=== PATIENT | male | born 1995 | race Caucasian/White ===

== ENCOUNTER 2024-05-13 13:36 | Emergency (ER) | payer MEDICAID ==
[~2024-05-13] VITALS: Ht 172.7 cm; Wt 73.0 kg
[2024-05-13 13:43] VITALS: O2SAT 99
[2024-05-13 13:53] VITALS: BP 134/70; PULSE 70; RESP 16; TEMP 36.8; O2SAT 98
[2024-05-13] MEDS: TETANUS, DIPHTHERIA, PERTUSSIS VAC/PF 0.5ML (>10YR OLD) IM ONE (15:49)
[2024-05-13] MEDS: BACITRACIN ZINC OINT UDPKT TOP ONE (15:49)
[2024-05-13] MEDS ORDERED: IBUP-2030 MT (15:52)
== END 2024-05-13 16:21 | disposition home or self-care (01) ==
LOC: ER 13:36
DX: S62.102A Fracture of unspecified carpal bone, left wrist, initial encounter for closed fracture (principal); S00.81XA Abrasion of other part of head, initial encounter; V19.9XXA Pedal cyclist (driver) (passenger) injured in unspecified traffic accident, initial encounter; Y92.89 Other specified places as the place of occurrence of the external cause; Y93.89 Activity, other specified; Y99.9 Unspecified external cause status
CPT/HCPCS: 29125; 73110; 90471; 90715; 99283